=== PATIENT | female | born 1955 | race Caucasian/White ===

== ENCOUNTER 2020-11-25 16:46 | Emergency (ER) | payer MEDICARE, OTHER, SELFPAY ==
[2020-11-25 17:03] VITALS: BP 134/72; PULSE 72; RESP 20; TEMP 36.7; O2SAT 97
--- NOTE | 2020-11-25 18:02 | ED.URI ---
HPI - URI/Sore Throat General Chief Complaint: Upper Respiratory Infection Stated Complaint: sinus issues Source: patient and RN notes reviewed Limitations: no limitations History of Present Illness HPI Narrative: The vaccinated patient, who is a non-smoker/nondrinker, presents with at least a 10-day, week and a half history of scantly productive cough. No fever, sore throat, sputum changes, earache, wheezing/sneezing. Symptoms are mild persistent, somewhat worse at night/positional. Patient had Covid followed by the vaccine; no loss of taste/smell, CP, calf pain/edema, S OB. Only members similar, preceding illness; she thought her is initially was just seasonal allergies. Related Data Home Medications Medication Instructions Recorded Confirmed aspirin [Adult Low Dose Aspirin] 81 mg PO DAILY 11/25/20 11/25/20 omeprazole 40 mg PO DAILY 11/25/20 11/25/20 Allergies Allergy/AdvReac Type Severity Reaction Status Date / Time No Known Allergies Allergy Verified 11/25/20 17:20 Review of Systems Review of Systems: General/Constitutional: No weight loss,fever Eyes: N0: Redness,discharge Ears/Nose/Throat: No: Epistaxis,ear discharge Respiratory: Denies: Hemoptysis Gastrointestinal: No Vomiting, Bleeding-rectal Skin: No Lumps, eruption Neurologic: No Focal Weakness,Sz Hematologic: Denies: Petechiae/Purpura Psychiatric: No: Suicida ideationl All Other Systems: Reviewed and Negative PMFSH Comments At time of signature, agree with nursing past medical, surgical, social and family history. There is no relevant family history pertinent to the presenting complaint Exam Narrative: General Appearance: Well appearing, Well nourished EYE: PERRLA, Conjunctiva clear Ears: Auditory canal normal, TM normal Nose: Rhinorrhea, Mucousal erythema Mouth/Throat: MM moist, Uvula midline, Pharyngeal erythema Neck: Supple, No adenopathy Respiratory: No respiratory distress, Breath sounds equal, Clear to auscultation Cardiovascular: RRR, No JVD Musculoskeletal: Non tender, Normal strength Skin: Warm, Dry Neurological: A&O x3, CN II-XII intact Psychiatric: Normal mood, Normal affect Course Vital Signs Vital signs: Vital Signs Temperature 98.1 F 11/25/20 17:03 Pulse Rate 72 11/25/20 17:03 Respiratory Rate 20 11/25/20 17:03 Blood Pressure 134/72 11/25/20 17:03 Pulse Oximetry 97 11/25/20 17:03 Temperature 98.1 F 11/25/20 17:03 Pulse Rate 72 11/25/20 17:03 Respiratory Rate 20 11/25/20 17:03 Blood Pressure 134/72 11/25/20 17:03 Pulse Oximetry 97 11/25/20 17:03 MDM - URI/Sore Throat Lab Data Labs: Lab Results 11/25/20 Range/Units 17:18 POC SARS CoV-2 Ag Negative (Negative) Discharge Plan Discharge Clinical Impression: Bronchitis Patient Disposition: Home, Self-Care Condition: Stable Instructions: Antibiotic Form, Acute Bronchitis (ED) Prescriptions: New azithromycin 250 mg tablet See Rx Instructions .ROUTE .COMPLEX Qty: 6 RF: 0 prednisone 20 mg tablet 60 mg PO DAILY Qty: 9 RF: 0 benzonatate [Tessalon Perles] 100 mg capsule 100 mg PO TID Qty: 20 RF: 1 azelastine 137 mcg (0.1 %) aerosol,spray 137 mcg NASAL Q12H Qty: 30 RF: 0 codeine-guaifenesin 10-100 mg/5 mL liquid 7.5 ml PO BID PRN (Reason: cough) Qty: 118 RF: 0 No Action omeprazole 40 mg capsule,delayed release(DR/EC) 40 mg PO DAILY RF: 0 Adult Low Dose Aspirin 81 mg Tablet 81 mg PO DAILY RF: 0 Follow-up/Referrals: UNKNOWN,DOCTOR [Primary Care Provider] -
== END 2020-11-25 18:08 | disposition home or self-care (01) ==
PROVIDERS: Emergency Provider Emergency Medicine
DX: J40 Bronchitis, not specified as acute or chronic (principal); Z20.822 Contact with and (suspected) exposure to COVID-19; Z79.82 Long term (current) use of aspirin; K21.9 Gastro-esophageal reflux disease without esophagitis; Z86.16 Personal history of COVID-19; D64.9 Anemia, unspecified
CPT/HCPCS: 87426; 99213; C9803; G0463

== ENCOUNTER 2022-04-14 17:31 | Emergency (ER) | payer MEDICARE, SELFPAY ==
[2022-04-14 17:49] VITALS: BP 131/74; PULSE 74; RESP 18; TEMP 36.5; O2SAT 99
[2022-04-14 17:50] VITALS: BP 131/74; PULSE 74; RESP 18; TEMP 36.5; O2SAT 99
--- NOTE | 2022-04-14 17:57 | ED.URI ---
HPI - URI/Sore Throat General Chief Complaint: Upper Respiratory Infection Stated Complaint: sorethroat,congestion Time Seen by Provider: 04/14/22 17:52 Source: patient, RN notes reviewed and old records reviewed Mode of arrival: ambulatory Limitations: no limitations History of Present Illness HPI Narrative: 66-year-old female who presents to [facility] with sinus congestion, right earache, scratchy throat ,cough with no fevers for over 1 week duration. Patient reports that she is taking Zyrtec D for her symptoms without resolution. Patient voices concern of being ill since they are going to be flying to [place] on Monday. Patient report that significant other is also ill with sinus problems.States whenever is ill will get fevers ores with sores noted to upper lip and on lower lip as well. MD elicited complaint: cough, sore throat, nasal congestion and other (ear ache) Onset (ago): week(s) ( over one week) Pain scale (0-10): 5 Able to tolerate fluids by mouth: Yes Treatments prior to arrival: other (zyrtec D) Related Data Home Medications Medication Instructions Recorded Confirmed omeprazole 40 mg capsule,delayed 40 mg PO DAILY 11/25/20 04/14/22 release Allergies Allergy/AdvReac Type Severity Reaction Status Date / Time No Known Allergies Allergy Verified 04/14/22 17:49 Review of Systems Review of Systems: CONSTITUTIONAL: Denies malaise, chills, sweats, or fever. EYES: Denies visual changes, redness, or discharge. ENT: Reports rhinorrhea, congestion, sinus pain,right ear otalgia and sore throat. CARDIOVASCULAR: Denies chest pain, palpitations, or edema. RESPIRATORY: Reports dry cough.? Denies dyspnea. GASTROINTESTINAL: Denies abdominal pain, nausea, vomiting, diarrhea SKIN: Denies rash or itching.fever sores to upper and lower lips MUSCULOSKELETAL: Denies myalgia. NEUROLOGIC: Denies headache. All systems reviewed & are unremarkable except as noted in HPI and below PMFSH Past Medical History Medical History (Updated 04/15/22 @ 11:28 by Eleanor Smith NP) Anemia COVID-19 2020 GERD (gastroesophageal reflux disease) Surgical History Surgical History (Updated 04/15/22 @ 11:20 by Eleanor Smith NP) History of tonsillectomy History of tubal ligation Social History Social History (Updated 04/14/22 @ 18:18 by Eleanor Smith NP) Smoking status: Never smoker Comments At time of signature, agree with nursing past medical, surgical, social and family history. There is no relevant family history pertinent to the presenting complaint Exam Narrative: GENERAL: Well-appearing, well-nourished, and in no acute distress. HEAD: Normocephalic EYES: PERRLA, conjunctivae clear ENT: Nares clear, turbinates edematous and erythematous, clear discharge. Mucous membranes moist. TM pearly chambers with dull light reflex bilaterally; no tragal tenderness. Oropharynx erythematous without lesions. Tonsils not present and throat without exudate, no drooling, no hoarseness, no trismus, uvula midline. NECK: Supple. No lymphadenopathy CHEST: Clear to auscultation, breath sounds equal. No wheezing, rhonchi, rales, or stridor. No respiratory distress, speaks in full sentences.dry cough SAO2 99% on room air HEART: Regular rate and rhythm. No murmur heard. SKIN: Warm, dry, no rash.fever sores to upper and lower lips NEURO: Alert and oriented x3. PSYCH: Normal mood and affect Course Course Emergency Course: Patient is aware of diagnosis, understands and agrees to treatment plan.? Anticipatory guidance given.? Patient agrees to follow-up as directed and is aware of reasons to seek care at the emergency department. Portions of this record may have been created with voice recognition software Level of Care: Express Care Visit Vital Signs Vital signs: Vital Signs Temperature 36.5 C 04/14/22 17:49 Pulse Rate 74 04/14/22 17:49 Respiratory Rate 18 04/14/22 17:49 Blood Pressure
== END 2022-04-14 18:20 | disposition home or self-care (01) ==
PROVIDERS: Emergency Provider Registered Nurse
DX: J32.9 Chronic sinusitis, unspecified (principal); B00.1 Herpesviral vesicular dermatitis; K21.9 Gastro-esophageal reflux disease without esophagitis; Z86.16 Personal history of COVID-19
CPT/HCPCS: 87081; 87880; 99213; G0463

== ENCOUNTER 2022-09-21 12:55 | Emergency (ER) | payer MEDICARE, SELFPAY ==
[2022-09-21 13:03] VITALS: BP 130/77; PULSE 80; RESP 20; TEMP 36.5; O2SAT 99
--- NOTE | 2022-09-21 13:26 | ED.URI ---
HPI - URI/Sore Throat General Chief Complaint: Upper Respiratory Infection Stated Complaint: Sore Throat,Congestion,Body Aches Time Seen by Provider: 09/21/22 13:14 Source: patient and RN notes reviewed Mode of arrival: ambulatory Limitations: no limitations History of Present Illness HPI Narrative: Patient presents today complaining of sore throat, postnasal drip, headache, body aches, nasal congestion with sinus pressure. Symptoms began yesterday. States her headache and sore throat have improved today. Denies fever, cough, sweats or chills. She has taken a dose of Zyrtec D and drinking Pedialyte with some relief. Currently rates her pain 5/10. Patient states she is leaving tomorrow on vacation and wanted to come in for evaluation as she believe she has a sinus infection. Related Data Home Medications Medication Instructions Recorded Confirmed omeprazole 40 mg capsule,delayed 40 mg PO DAILY 11/25/20 09/21/22 release atorvastatin 40 mg tablet 40 mg PO DAILY 09/21/22 09/21/22 rosuvastatin 5 mg tablet 5 mg PO DAILY 09/21/22 09/21/22 Allergies Allergy/AdvReac Type Severity Reaction Status Date / Time No Known Allergies Allergy Verified 09/21/22 12:57 Review of Systems Review of Systems: CONSTITUTIONAL: Denies fever, chills, or sweats.+ body aches EYES: Denies visual changes, redness, or discharge. ENT: Denies rhinorrhea, or otalgia.+ sore throat, postnasal drip, congestion, sinus pressure CARDIOVASCULAR: Denies chest pain, palpitations, or edema. RESPIRATORY: Denies cough or dyspnea. GASTROINTESTINAL: Denies abdominal pain, nausea, vomiting, or diarrhea. GENITOURINARY: Denies dysuria or hematuria. SKIN: Denies rash, itching, or wounds. MUSCULOSKELETAL: Denies back pain, joint pain, or myalgia. NEUROLOGIC: Denies numbness, tingling, or weakness.+ headache PSYCH: Denies depression or anxiety. [facility] Past Medical History Medical History Anemia COVID-2019 GERD (gastroesophageal reflux disease) Surgical History Surgical History History of tonsillectomy History of tubal ligation Social History Social History Smoking status: Never smoker Comments At time of signature, I have reviewed and agree with nursing past medical, surgical, social and family history unless otherwise noted. Please see nursing chart for further information. There is no relevant family history pertinent to the presenting complaint Exam Narrative: GENERAL: Well-appearing, well-nourished, and in no acute distress. HEAD: Normocephalic, atraumatic. EYES: EOMI. No redness or drainage. Conjunctivae normal. ENT: Mucous membranes pink and moist. Nares clear. No rhinorrhea. TMs normal bilaterally. Throat normal. Uvula midline. NECK: Normal AROM. Supple. No lymphadenopathy. CHEST: No respiratory distress. Clear to auscultation. HEART: Regular rate and rhythm. No murmur appreciated. Normal peripheral pulses. EXTREMITIES: Normal range of motion. No edema. SKIN: Warm, dry, no rash. Capillary refill normal. Normal skin turgor. NEURO: No focal deficits. Alert and oriented x3. Gait steady. PSYCH: Normal affect. No signs of depression or anxiety. Course Course Level of Care: Express Care Visit Vital Signs Vital signs: Vital Signs Temperature 97.7 F 09/21/22 13:03 Pulse Rate 80 09/21/22 13:03 Respiratory Rate 20 09/21/22 13:03 Blood Pressure 130/77 09/21/22 13:03 Pulse Oximetry 99 09/21/22 13:03 Oxygen Delivery Room Air 09/21/22 13:03 Temperature 97.7 F 09/21/22 13:03 Pulse Rate 80 09/21/22 13:03 Respiratory Rate 20 09/21/22 13:03 Blood Pressure 130/77 09/21/22 13:03 Pulse Oximetry 99 09/21/22 13:03 Oxygen Delivery Room Air 09/21/22 13:03 Reviewed. Pt has been instructed to follow up wi
== END 2022-09-21 13:29 | disposition home or self-care (01) ==
PROVIDERS: Emergency Provider Nurse Practitioner
DX: J06.9 Acute upper respiratory infection, unspecified (principal); K21.9 Gastro-esophageal reflux disease without esophagitis; Z86.16 Personal history of COVID-19
CPT/HCPCS: 99211; G0463